=== PATIENT | female | born 1980 | race Caucasian/White ===

== ENCOUNTER 2018-07-21 13:13 | Emergency (ER) | payer MEDICAID ==
[~2018-07-21] VITALS: Ht 154.9 cm; Wt 75.0 kg
[2018-07-21 13:17] VITALS: Ht 154.9 cm; Wt 75.0 kg
[2018-07-21 13:51] LABS: BASOPHILS 0.8 % (0-2); EOSINOPHILS 0 % (0-7); HEMATOCRIT 29.3 % (36.0-48.0); HEMOGLOBIN 8.5 g/dL (12-16); IMMATURE GRANULOCYTES 0.2 % (0-5); MCV 64.7 fL (80.0-100.0); MEAN PLATELET VOLUME 7.8 fL (7.4-10.4); MONOCYTES 4.1 % (2-11); NEUTROPHILS 80.9 % (40-80); PLATELET COUNT 272 10x3/uL (130-400); RBC 4.53 10x6/uL (4.00-5.40); RDW 19.3 % (11.5-14.5); WBC 8.9 10x3/uL (4.8-10.8)
[2018-07-21] MEDS ORDERED: ZOFRAN ODT4 MG/UDTAB PO (14:00)
[2018-07-21] MEDS ORDERED: LOMOTIL 2.5-0.1 EAC1 PO (14:00)
[2018-07-21 14:03] LABS: MCH 18.8 pg (26.0-34.0)
[2018-07-21 14:05] LABS: APPEARANCE CLOUDY (CLEAR); BILIRUBIN NEGATIVE (NEGATIVE); COLOR YELLOW (YELLOW); GLUCOSE NEGATIVE (NEGATIVE); KETONE NEGATIVE (NEGATIVE); NITRITE POSITIVE (NEGATIVE); PROTEIN TRACE mg/dL (NEGATIVE); UROBILINOGEN NORMAL (NORMAL)
[2018-07-21 14:06] LABS: AMORPHOUS SEDIMENT <1+ /lpf (NONE SEEN); BACTERIA MANY /hpf (NONE SEEN); EPITHELIAL CELLS RARE /hpf (0-5); MUCUS <1+ /lpf (NONE SEEN); WHITE CELLS - URINE >50 /hpf (0-5)
[2018-07-21 14:07] LABS: HYALINE CAST OCC /lpf (NONE SEEN)
[2018-07-21 14:13] LABS: ALBUMIN 3.8 g/dL (3.4-5.0); ALKALINE PHOSPHATASE 120 U/L (46-116); ALT (SGPT) 16 U/L (10-68); AMYLASE - SERUM 16 U/L (25-115); BILIRUBIN - TOTAL 0.39 mg/dL (0.2-1.3); CALC OSMOLALITY 275 mosm/kg (275-300); CALCIUM 8.6 mg/dL (8.5-10.1); CARBON DIOXIDE 26.3 mmol/L (21.0-32.0); CHLORIDE - SERUM 103 mmol/L (98-107); CREATININE - SERUM 0.7 mg/dL (0.6-1.3); GLUCOSE 101 mg/dL (74-106); LIPASE 60 U/L (73-393); POTASSIUM - SERUM 3.4 mmol/L (3.5-5.1); PROTEIN - SERUM 8.4 g/dL (6.4-8.2); SODIUM 139 mmol/L (136-145); UREA NITROGEN 6 mg/dL (7-18); eGFR NON AFRICAN AMERICAN > 90 mL/min (90-120)
[2018-07-21] MEDS ORDERED: MACROBID100 MG PO (14:24)
[2018-07-21] MEDS ORDERED: FERROUS SULFAT325 MG PO (14:25)
[2018-07-21 16:03] VITALS: BP 160/88
== END 2018-07-21 16:00 | disposition home or self-care (01) ==
LOC: D.ER 13:13
PROVIDERS: Emergency Medicine
DX: R11.10 Vomiting, unspecified (principal); R19.7 Diarrhea, unspecified; M79.18 Myalgia, other site; E06.3 Autoimmune thyroiditis; F17.200 Nicotine dependence, unspecified, uncomplicated